=== PATIENT | female | born 1965 ===

== ENCOUNTER 2024-11-04 15:53 | Outpatient (CLI) | payer OTHER | END 2024-11-04 15:57 | disposition home or self-care (01) | LOC: RAD 15:53 | DX: M25.561 Pain in right knee (principal); M25.562 Pain in left knee ==

== ENCOUNTER 2025-03-22 12:08 | Outpatient (CLI) | payer OTHER | END 2025-03-22 12:10 | disposition home or self-care (01) | LOC: RAD 12:08 | PROVIDERS: ATTEND Internal Medicine | DX: M25.511 Pain in right shoulder (principal) ==

== ENCOUNTER 2025-07-05 09:43 | Outpatient (CLI) | payer OTHER | END 2025-07-05 09:48 | disposition home or self-care (01) | LOC: MAMO-SONO 09:43 | PROVIDERS: ATTEND Internal Medicine | DX: N60.11 Diffuse cystic mastopathy of right breast (principal); N60.12 Diffuse cystic mastopathy of left breast; Z12.31 Encounter for screening mammogram for malignant neoplasm of breast ==